=== PATIENT | female | born 1965 | race African-American/Black ===

== ENCOUNTER 2021-09-01 04:27 | Day surgery (SDC) | payer OTHER ==
[2021-08-27 17:55] VITALS: BMI 32.9
[2021-09-01] MEDS ORDERED: MIDAZOLAM HCL 2 MG/2 ML SINGLE DOSE VIAL ONE (10:28)
[2021-09-01] MEDS ORDERED: SUCCINYLCHOLINE CHLORIDE 200 MG/10 ML SYRINGE ONE (10:39)
[2021-09-01] MEDS ORDERED: PROPOFOL 20 ML ONE ×2 (10:39)
[2021-09-01] MEDS ORDERED: ONDANSETRON 4 MG/2 ML VIAL ONE (10:41)
[2021-09-01] MEDS ORDERED: DEXAMETHASONE SOD PHOSPHATE 4 MG/1 ML VIAL ONE (10:41)
[2021-09-01] MEDS ORDERED: IBUPROFEN 600 MG TABLET (FP) PO PRN (12:15)
[2021-09-01] MEDS ORDERED: ELECTROLYTE-148 SOLN 1,000 ML IV SCH (12:15)
[2021-09-01] MEDS ORDERED: IBUPROFEN 800 MG/8 ML IJ IVPB PRN (12:15)
[2021-09-01] MEDS ORDERED: ONDANSETRON 4 MG/2 ML VIAL IVPUSH PRN (12:15)
[2021-09-01] MEDS ORDERED: oxyCODONE HCL 5 MG TABLET PO PRN (12:15)
[2021-09-01 17:33] VITALS: BP 127/80; PULSE 69; TEMP 97.8
== END 2021-09-01 12:50 | disposition home or self-care (01) ==
LOC: JASU-SURG 04:27
PROVIDERS: ATTEND Obstetrics & Gynecology
PROC: 0UB98ZX Excision of Uterus, Via Natural or Artificial Opening Endoscopic, Diagnostic (ICD-10-PCS; 2021-09-01)
PROC: 0UDB7ZX Extraction of Endometrium, Via Natural or Artificial Opening, Diagnostic (ICD-10-PCS; 2021-09-01)
PROC: 0UB98ZZ Excision of Uterus, Via Natural or Artificial Opening Endoscopic (ICD-10-PCS; principal; 2021-09-01 11:00)
DX: N93.9 Abnormal uterine and vaginal bleeding, unspecified (principal); D25.0 Submucous leiomyoma of uterus; N84.0 Polyp of corpus uteri
CPT/HCPCS: 81025; 88305-TC; 94760

== ENCOUNTER 2022-07-01 19:41 | Emergency (ER) | payer OTHER ==
[2022-07-01 19:47] VITALS: BP 124/85; PULSE 87; TEMP 98.2; BMI 32.3
[2022-07-01] MEDS ORDERED: ACETAMINOPHEN 500 MG TABLET (FP) PO ONE (20:42)
[2022-07-01] MEDS ORDERED: ACETAMINOPHEN 500 MG TABLET (FP) ONE (20:52)
== END 2022-07-01 21:55 | disposition home or self-care (01) ==
LOC: JERFT 19:41
DX: S92.414A Nondisplaced fracture of proximal phalanx of right great toe, initial encounter for closed fracture (principal); W18.40XA Slipping, tripping and stumbling without falling, unspecified, initial encounter
CPT/HCPCS: 73630-TC-RT-FY; 99283-25